=== PATIENT | female | born 2005 | race Caucasian/White ===

== ENCOUNTER 2024-10-09 13:39 | Emergency (ER) | payer OTHER, SELFPAY ==
[2024-10-09 13:44] VITALS: BP 110/72
[2024-10-09 13:59] LABS: Hematocrit 42.2 % (37.0-47.0); Hemoglobin 14.5 g/dL (12.0-16.0); Mean Corp Hgb Conc. 34.4 g/dL (33.0-37.0); Mean Corpuscular Volume 88.5 fL (81.0-99.0); Nucleated Red Blood Cells % 0 %; Platelet Count 284 10^3/uL (130-400); Red Cell Dist. Width 12.5 % (11.5-14.5)
[2024-10-09 14:26] LABS: HCG, Serum Qualitative Screen Negative
[2024-10-09 14:29] LABS: ALT (SGPT) 14 U/L (0-35); AST (SGOT) 20 U/L (14-36); Albumin 4.6 g/dl (3.5-5.0); Alkaline Phosphatase 67 U/L (38-126); Blood Urea Nitrogen 11 mg/dl (7-17); Calcium 9.5 mg/dl (8.4-10.2); Carbon Dioxide 25 mmol/L (22-30); Chloride 108 mmol/L (98-107); Glucose 102 mg/dl (70-99); Potassium 4.2 mmol/L (3.5-5.1); Sodium 138 mmol/L (135-145); Total Protein 7.2 g/dl (6.3-8.2); eGFR > 60.00
[2024-10-09 14:36] LABS: Troponin I < 0.012 ng/ml
[2024-10-09 17:11] LABS: C-Reactive Protein < 5.00 mg/L (0.0-10.00)
[2024-10-09 17:50] VITALS: BMI 29.5
[2024-10-09 19:09] VITALS: BP 94/57
--- NOTE | 2024-10-09 22:15 | ED.GENMED ---
History of Present Illness
General
Chief Complaint: Breathing Problem
Source: patient
Exam Limitations: none
Time Seen by Provider: 10/09/24 16:23
Nursing documentation reviewed up to this point in time: agreed with
History of Present Illness
History of Present Illness:
Patiient to ED wtih complaint of fatigue, SOB, palpitations. Symptoms started approx 1 week ago. No fever/chills. Brought to ED by mother for eval.
Past History
Past History
ED Past Medical History: None
ED Past Surgical History: None
Phy Exam
General Physical Exam
General Presentation: well appearing and no apparent distress
General age: appears stated age
General Skin: warm and dry
General Habitus: normal
General Mental: alert
Cardiovascular Exam
Cardiovascular Exam: regular rate/rhythm and no edema
Pulmonary Exam
Pulmonary Exam: lungs clear and no respiratory distress
Neurological Exam
Neurological Exam: alert, oriented x3, CN II-XII intact, no motor deficits, no sensory deficits and speech normal
Musculoskeletal Exam
Musculoskeletal Exam: full ROM and neuro vasc intact
Skin Exam
Skin Exam: normal color, warm/dry and no rash
Psychiatric Exam
Psychiatric Exam: normal mood/affect
Course
Orders/Labs/Results
Orders:
Orders
10/09/24 13:40
Electrocardiogram (*1) Urgent
Reason for Study: Shortness of Breath
EKG- Treatment ONCE
10/09/24 13:48
Test Result ONCE
10/09/24 13:53
C-Reactive Protein Urgent
Comment: ADD ON
Complete Blood Count/With Diff Urgent
Comprehensive Metabolic Panel Urgent
Erythrocyte Sed Rate Urgent
Comment: ADD ON
HCG, Serum Qualitative Screen Urgent
TSH Reflex To Free T4 Urgent
Comment: ADD ON
Troponin I Urgent
10/09/24 16:31
Add On- LAB Urgent
Tests Added?: TSH reflex free T4
Add On- LAB Urgent
Tests Added?: sed rate, crp
CR Chest - 2 Views Urgent
Comment:
Reason For Exam: pain
10/09/24 17:45
Jessica-Antony Virus Ab Panel I [S] Urgent
Abnormal Lab Results
10/09/24
13:53
Chloride 108 H mmol/L
(98-107)
Glucose 102 H mg/dl
(70-99)
10/09/24 13:53
10/09/24 13:53
Vital Signs
Initial and Last Documented VS:
Initial Vital Signs
Temp Pulse Resp BP Pulse Ox
97.8 F 67 16 110/72 99
10/09/24 13:44 10/09/24 13:44 10/09/24 13:44 10/09/24 13:44 10/09/24 13:44
Last Documented Vital Signs
Temp Pulse Resp BP Pulse Ox
97.8 F 59 16 94/57 100
10/09/24 13:44 10/09/24 19:09 10/09/24 19:09 10/09/24 19:09 10/09/24 19:09
*Radiology
Radiology exam reviewed: radiology read reviewed
*Pulse Oximetry
SaO2: 100
Oxygen Mode of Delivery: Room air
Patient hypoxic: no
*Critical Care Note
Total Time (30-74mins, 75-104mins- exclusive of procedures): Not Applicable
Update Note
Update Note:
Patient to ED wth complaint of fatigue, SOB, palpitations. Labs reviewed with patient and parents. No concerning findings. CXR NAD, EKG NSR. VSS, she remains afebrile. WIll discharge home and she will follow up with PCP. Given instructions on
s/s to return to ED and she is agreeable to plan.
ED Attending Note
-
Portions of this chart may have been created with voice recognition software.� Occasional wrong word or��sound alike� substitutions may have occurred due to the inherent limitations of voice recognition software.
Discharge Plan
Departure
Patient Disposition: Home (Routine Discharge)
Date of Disposition: 10/09/24
Time of Disposition: 19:44
Patient with high blood pressure during this ER visit?: No
Condition: Good
Covid-19: Not Applicable
Discharge Problem:
Fatigue, Dyspnea
Instructions: Shortness of breath in adults - ED discharge instructions, Fatigue - ED discharge instructions
Prescriptions:
No Action
propranolol 10 mg Tablet
10 mg PO PRN PRN (Reason: Anxiety)
norethindrone (contraceptive) [Jencycla] 0.35 mg Tablet
0.35 mg PO DAILY
guanfacine 2 mg Tablet
2 mg PO HS
escitalopram oxalate 10 mg tablet
10 mg PO HS
Referrals:
Vu Haynes DO [Family Provider, Family Practice] - Follow up in 2-3 days
Activity Restrictions/Additional Instructions:
Return to the emergency department immediately for any changes in/worsening of your symptoms
Interventions
Interventions:
*Risk Screen - Suicide Last Done: 10/09/24 19:08
*General Assessment Last Done: 10/09/24 19:08
*Neglect/Abuse Screening Last Done: 10/09/24 19:08
*ED- Fall Risk Assessment Last Done: 10/09/24 19:08
*ED COVID-19 Vaccine History Last Done: 10/09/24 19:08
*Nursing Disposition Last Done: 10/09/24 19:57
ED- Cardiac Assessment Last Done: 10/09/24 17:50
ED- Pulmonary Assessment Last Done: 10/09/24 17:50
Discharge Date and Time
Discharge Date/Time: 10/09/24 19:59
Print Language: CZECH
[2024-10-12 05:50] LABS: EBV-EA (D) Ab IgG <5.0 U/mL (0.0-10.9); EBV-NA IgG 25.7 U/mL (0.0-21.9); EBV-VCA IgG Antibodies 35.6 U/mL (0.0-21.9); EBV-VCA IgM Antibodies <10.0 U/mL (0.0-43.9)
== END 2024-10-09 19:59 | disposition home or self-care (01) ==
LOC: EMR 13:39
PROVIDERS: Emergency Medicine; Nurse Practitioner; EMERGENCY PHYSICIAN Emergency Medicine; FAMILY PHYSICIAN Family Medicine
DX: R06.00 Dyspnea, unspecified (principal); R53.83 Other fatigue; R06.02 Shortness of breath; R00.2 Palpitations
CPT/HCPCS: 99283; 71046; 80053; 84443; 84484; 84703; 85025; 85652; 86140; 86663; 86664; 86665; 93005